=== PATIENT | female | born 1990 | race Caucasian/White ===

== ENCOUNTER 2020-03-07 14:52 | Emergency (ER) | payer SELFPAY ==
[2020-03-07 15:00] VITALS: BP 122/98; PULSE 87; RESP 14; TEMP 36.8; O2SAT 99; BMI 23.5
--- NOTE | 2020-03-07 21:37 | ED.BACK ---
HPI - Back Pain/Injury <ANTOINETTE Almaguer - Last Filed: 03/07/20 21:48> General Chief Complaint: Urogenital-Female Stated Complaint: worsening back pain Time Seen by Provider: 03/07/20 15:55 Source: patient Mode of arrival: Ambulatory Limitations: no limitations History of Present Illness HPI Narrative: This is a 29-year-old female, nonsmoker, who was recently treated with nitrofurantoin b.i.d. for 7 day course for UTI symptoms which she completed 10 days ago presents to ED with right low and thoracic back pain with left neck pain. Patient is concerned for kidney infection since she had recent UTI symptoms such as urinary urgency. Patient has been increasing hydration, taking probiotics and cranberry pills without much improvement after the initial urinary symptoms and she was evaluated at walk-in clinic by telemedicine and treated with antibiotic medications. Patient denies fever, chills, nausea or vomiting currently. Patient reports pain increases with movements and bending and extending her back. Patient reports urinary cloudiness but denies other urinary symptoms such as urgency, frequency, blood, dysuria. Patient denies groin numbness, weakness to her extremities, incontinence for bladder or stools. Patient denies history of back injury or trauma but states has been sitting on a chair prolonged time. Patient denies drug use including IV drugs. Patient denies recent spine manipulations or injections. LMP 2 weeks ago which was normal for her. Related Data Previous Rx's Medication Instructions Recorded cyclobenzaprine 10 mg PO BEDTIME PRN #7 tab 03/07/20 Allergies Allergy/AdvReac Type Severity Reaction Status Date / Time No Known Drug Allergies Allergy Verified 03/07/20 15:00 Review of Systems <ANTOINETTE Almaguer - Last Filed: 03/07/20 21:48> Review of Systems Narrative: General: Denies fever, chills, fatigue, malaise, sweats. HEENT: Denies sinus pain, ear pain, sore throat, difficulty swallowing, dizziness. Respiratory: Denies dyspnea, cough, wheezing, hemoptysis, sputum. Cardiovascular: Denies chest pain, palpitations, orthopnea, edema. Gastrointestinal: Denies nausea, vomiting, abdominal pain, diarrhea, constipation, melena. : See HPI Musculoskeletal: See HPI Skin: Denies rash, skin lesions, or other. Neurologic: Denies weakness, headache, numbness, change in speech, confusion, seizures, incoordination. Psychiatric: No concerning psychosocial issues. 12-point review of systems is negative except for those stated above. Patient History <ANTOINETTE Almaguer - Last Filed: 03/07/20 21:48> Medical History (Updated 03/07/20 @ 21:42 by ANTOINETTE Almaguer) No significant past medical history (Acute) Surgical History (Updated 03/07/20 @ 21:42 by ANTOINETTE Almaguer) No pertinent past surgical history (Acute) Social History (Updated 03/07/20 @ 21:43 by ANTOINETTE Almaguer) Smoking Status: Unknown if ever smoked substance use type: does not use Smoking Status: Unknown if ever smoked alcohol intake frequency: holidays/special occasions only Exam <ANTOINETTE Almaguer - Last Filed: 03/07/20 21:48> Narrative Exam Narrative: GEN: Alert, oriented x 3, well appearing and nourished, and in no acute distress. Head: Normal cephalic, atraumatic. No scalp or temporal tenderness, palpable mass or rash. EYES: Pupils are equal, round, and reactive to light and accommodation. Extraocular muscles are intact bilaterally. There is no subconjunctival hemorrhage, exudate and sclera non-icteric. ENT: Hearing grossly intact. Airway patent. Neck: Trachea in midline. No JVD, non-tender without lymphadenopathy. No masses or thyroid megaly. Supple, non-tender and no meningeal signs. CARDIAC: Normal regular rate and rhythm without murmurs, gallops, or rubs. No chest wall tenderness. No peripheral edema, cyanosis or pallor. Capillary refill is less than 2 seconds. RESPIRATORY: Lungs are clear to auscultate bilaterally. No cough, wheezes, rales, or rhonchi. No stridor, respiratory distress, increase work of breathing, or accessary muscle used. ABD: Abdomen soft, nontender and non-distended. No guarding or rebound tenderness to palpate. Bowel sounds are normal in all 4 quadrants. There is no palpable masses or organomegaly. EXT: Full painless ROM of all extremities with no loss of sensation, strength, effusion or edema. SKIN: Warm, dry, normal color for patient. No erythema, lesions or rash over visible areas. NEUROLOGICAL: Alert and oriented to place, time and person. Sensation and motor function intact bilaterally. No facial droops, dysphasia. PSYCHIATRIC: Good judgement and reason, without hallucinations, abnormal affect or abnormal behaviors during the examination. Patient is not suicidal. Initial Vital Signs Initial Vital Signs: Vital Signs Temperature 98.2 F 03/07/20 15:00 Pulse Rate 87 03/07/20 15:00 Respiratory Rate 14 03/07/20 15:00 Blood Pressure 122/98 H 03/07/20 15:00 Pulse Oximetry 99 03/07/20 15:00 Back/Spine/Pelvis Back: normal to inspection, back tenderness, No CVA tenderness, No ecchymosis, No erythema, No mass and No warmth Cervical Spine: normal cervical lordosis, cervical ROM normal and pain with cervical ROM Thoracic/Lumbar Spine: pain with thoraco-lumbar ROM, No paraspinal tenderness, thoracic spinal tenderness and lumbar spinal tenderness <Favian Melara MD - Last Filed: 03/08/20 08:32> Initial Vital Signs Initial Vital Signs: Vital Signs Temperature 98.2 F 03/07/20 15:00 Pulse Rate 87 03/07/20 15:00 Respiratory Rate 14 03/07/20 15:00 Blood Pressure 122/98 H 03/07/20 15:00 Pulse Oximetry 99 03/07/20 15:00 Scores <ANTOINETTE Almaguer - Last Filed: 03/07/20 21:48> GCS [place] coma scale eye opening: Spontaneous [place] coma scale verbal response: Orientated [place] coma scale motor response: Obey commands [place] coma scale total score: 15 qSOFA Altered Mental Status (GCS <15): No Respiratory rate greater than/equal to 22: No Systolic blood pressure less than or equal to 100: No qSOFA Total: 0 0-1 Not High Risk 1-3 High risk Course <ANTOINETTE Almaguer - Last Filed: 03/07/20 21:48> Vital Signs Vital signs: Vital Signs - 8 hr 03/07/20 15:00 Temperature 98.2 F Pulse Rate 87 Respiratory Rate 14 Blood Pressure 122/98 H Pulse Oximetry 99 <Favian Melara MD - Last Filed: 03/08/20 08:32> Vital Signs Vital signs: Vital Signs - 8 hr 03/07/20 15:00 Temperature 98.2 F Pulse Rate 87 Respiratory Rate 14 Blood Pressure 122/98 H Pulse Oximetry 99 MDM - Back Pain/Injury <Shon CoxANTOINETTE - Last Filed: 03/07/20 21:48> Differential Diagnosis Differential diagnosis: Likely strain of lumbar region, renal colic, pyelonephritis, thoracic back pain and other (Shingles) Medical Records Attestation: I reviewed the patient's medical records. Lab Data Attestation: I reviewed the patient's lab results. Labs: Point of Care Testing Test Results Negative Urine Dip Bedside Urine Glucose Negative Bedside Urine Bilirubin + 1 Bedside Urine Ketone - Negative Urine Specific [place] 1.030 Bedside Urine Occult Blood - Negative Bedside Urine pH 6.0 Bedside Urine Protein +/- 15 Bedside Urine Urobilinogen - Negative Bedside Urine Nitrite - Negative Bedside Urine Leukocytes - Negative Esterase MDM Narrative Medical decision making narrative: This is a 29-year-old female who presents to ED with low thoracic, right lumbar spine discomfort and left neck discomfort. Patient was concerned for kidney infection since she was recently treated for UTI with nitrofurantoin. Patient reports cloudy urine without other urinary symptoms. Patient is afebrile with within normal heart rates and blood pressure. Patient does not appears to be toxic. Reports pain increases with movements. UA test result is not consistent with UTI. Negative urine leukoesterase and nitrites. No occult blood in urine. Urine test was negative. There is no rash noted in affected site. Will treat patient with musculoskeletal pain. Patient was discharged to home with small dose of Flexeril for muscle relaxant and advised to take [id number] Tylenol and or Motrin as needed for discomfort. Return precautions were discussed with patient and patient verbalized understanding and agreement with treatment plan. [facility] phone number provided to arrange primary care physician in [facility]. <Favian Melara MD - Last Filed: 03/08/20 08:32> Lab Data Labs: Point of Care Testing Test Results Negative Urine Dip Bedside Urine Glucose Negative Bedside Urine Bilirubin + 1 Bedside Urine Ketone - Negative Urine Specific [place] 1.030 Bedside Urine Occult Blood - Negative Bedside Urine pH 6.0 Bedside Urine Protein +/- 15 Bedside Urine Urobilinogen - Negative Bedside Urine Nitrite - Negative Bedside Urine Leukocytes - Negative Esterase Discharge Plan Departure Patient Disposition: Home Clinical Impression: Neck pain Back pain Qualifiers: Back pain location: low back pain Chronicity: unspecified Back pain laterality: midline Sciatica presence: without sciatica Qualified Code(s): M54.5 - Low back pain Discharge Date/Time: 03/07/20 16:40 Instructions: DI for Neck Pain, DI for Back Strain or Sprain Activity Restrictions/Additional Instructions: You have been diagnosed with [low thoracic pain and neck pain likely from strain. No Indication for if infection from urine test. Urine test was negative.]. What to do: *Take your medications as directed. Please take Tylenol 650-1000 mg up to 3 to 4 times a day as needed for pain. Ibuprofen 400 mg to 600 mg up to 3 to 4 times a day as needed for pain with food to decrease GI irritation. Please take Flexeril as needed for muscle tightness. This medication can cause drowsiness so please do not drive, drink alcohol, operate heavy equipments. You could use warm pack/cool pack as needed on affected site for pain *Follow up with your primary care provider in 2-3 days, call for an appointment. Let them know you were seen in the ED and that we asked you to be seen in follow up. *Return to ED if you have any new, worsening, or concerning symptoms, such as [chest pain, breathing difficulty, unable to tolerate fluids, rash, weakness to bilateral legs, incontinence, groin numbness or any acute concerns]. Prescriptions: New cyclobenzaprine 10 mg tablet 10 mg PO BEDTIME PRN (Reason: muscle spasm) Qty: 7 RF: 0 Referrals: [facility] [Outside]
== END 2020-03-07 16:40 | disposition home or self-care (01) ==
PROVIDERS: Emergency Provider Nurse Practitioner Family
DX: M54.2 Cervicalgia (principal); M54.5 Low back pain
CPT/HCPCS: 81003; 81025; 99282

== ENCOUNTER 2020-03-19 16:12 | Emergency (ER) | payer SELFPAY ==
[2020-03-19 16:15] VITALS: BP 135/80; PULSE 96; RESP 18; O2SAT 100; BMI 23.5
[2020-03-19 16:37] VITALS: TEMP 36.9
--- NOTE | 2020-03-19 16:54 | PC.NURSE ---
Patient states she has been experiencing lower back pain for weeks, that has recently been accompanied by RUQ pain, cloudy urine, and unusual leg bruising. States she did take cephalexin for what she believed was UTI in the past few weeks with relief for three days and the pain returning. Pain 8/10. Patient states the right leg has had vericose veins that were painful and red recently. States family history of blood clots. Also states she has known circulation issue throughout body and irregular heart rhythm. Vitals within normal limits. Visitor in room.
--- NOTE | 2020-03-19 17:08 | DI.US.S_ITS ---
PROCEDURE: US ABDOMEN LIMITED INDICATIONS: RIGHT UPPER QUADRANT PAIN TECHNIQUE: Real-time focused scanning was performed of the right upper quadrant, with image documentation. COMPARISON: None. FINDINGS: The liver is normal in size with homogeneous echotexture. No discrete hepatic mass lesion identified. The gallbladder is partially distended without gallstones, wall thickening, or pericholecystic fluid. No intra or extrahepatic biliary ductal dilatation. The visualized pancreas appears unremarkable sonographically. IMPRESSION: 1. No evidence of cholelithiasis or cholecystitis. Dictated by: Dov Sidhu M.D. on 03/19/2020 at 18:15 Approved by: Dov Sidhu M.D. on 03/19/2020 at 18:17
--- NOTE | 2020-03-19 17:10 | DI.RAD.S_ITS ---
PROCEDURE: XR CHEST 2V INDICATIONS: short of breath TECHNIQUE: 2 views of the chest were acquired. COMPARISON: None. FINDINGS: Surgical changes and devices: None. Lungs and pleura: Lungs are clear. No pleural effusions or pneumothorax. Mediastinum: Mediastinal contours are normal. Heart size is normal. Bones and chest wall: No suspicious bony abnormalities. Soft tissues appear unremarkable. IMPRESSION: 1. No acute cardiopulmonary disease. Dictated by: Dov Sidhu M.D. on 03/19/2020 at 18:17 Approved by: Dov Sidhu M.D. on 03/19/2020 at 18:17
[2020-03-19 17:18] LABS: Add Manual Diff / Slide Review NO; Basophils Absolute Auto 0 /uL (0-100); Basophils Percent Auto 0.4 % (0-2); Eosinophils Absolute Auto 100 /uL (0-450); Eosinophils Percent Auto 2.2 % (2-4); Hematocrit 39.6 % (36-46); Hemoglobin 13.2 g/dL (12.0-16.0); Lymphocytes Absolute Auto 2400 /uL (1100-4500); Lymphocytes Percent Auto 35.7 % (25-40); Mean Corpuscular HGB Conc 33.3 % (30-36); Mean Corpuscular Hemoglobin 29.6 PG (26-34); Mean Corpuscular Volume 88.8 fL (80-100); Monocytes Absolute Auto 400 /uL (0-900); Monocytes Percent Auto 6.1 % (3-14); Neutrophils Absolute Auto 3800 /uL (1500-7000); Neutrophils Percent Auto 55.6 % (50-75); Platelet Count 242 X10^3/uL (150-400); Red Blood Cell Count 4.46 X10^6/uL (4.0-5.2); Red Cell Distribution Width 12.4 % (11.6-14.8); White Blood Cell Count 6.8 X10^3/uL (4.5-11.0)
[2020-03-19 17:20] VITALS: PULSE 87; RESP 20; O2SAT 100
[2020-03-19 17:25] LABS: Alanine Aminotransferase 33 IU/L (<35); Albumin 4.2 g/dL (3.5-5.0); Albumin Globulin Ratio 1.6 (1.0-2.8); Alkaline Phosphatase 84 U/L (38-126); Aspartate Aminotransferase 31 IU/L (14-36); Bilirubin Total 0.6 mg/dL (0.2-1.3); Blood Urea Nitrogen 13 mg/dL (7-17); Calcium 9.8 mg/dL (8.4-10.2); Carbon Dioxide 28 mmol/L (22-32); Chloride 104 mmol/L (98-107); Creatine Kinase 33 U/L (30-135); Estimated Glomerular Filt Rate > 60.0 mL/min (>60); Globulin 2.7 g/dL (1.7-4.1); Glucose 89 mg/dL (70-100); HEMOLYSIS < 15 (0-50); Lipase 131 U/L (23-300); Potassium 4.1 mmol/L (3.4-5.1); Sodium 137 mmol/L (137-145); Total Protein 6.9 g/dL (6.3-8.2)
[2020-03-19 17:27] LABS: D Dimer < 200 ng/mL (<230)
[2020-03-19 17:30] VITALS: PULSE 86; RESP 20; O2SAT 100
[2020-03-19 17:37] LABS: Troponin I < 0.012 ng/mL (0.01-0.034)
[2020-03-19 18:00] VITALS: PULSE 83; O2SAT 96
--- NOTE | 2020-03-19 18:12 | ED_ITS ---
HPI - Back Pain/Injury General Chief Complaint: Back Pain/Injury Stated Complaint: BACK PAIN, STOMACH PAIN, SOB Time Seen by Provider: 03/19/20 16:40 Source: patient Mode of arrival: Ambulatory Limitations: no limitations History of Present Illness HPI Narrative: Patient is a 29-year-old female who presents with a variety of complaints. She states that she has been having some right upper quadrant pain ongoing for about the last 1 week radiating around to her back. She denies any nausea or vomiting. Food does not make it any better or worse. She also is having some chest pain or shortness of breath with exertion. 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 She has a family history of varicose veins and is worried that she might have a blood clot. She denies any productive cough. He is she had a UTI and likely pyelonephritis which was treated with antibiotics about 3 weeks ago. She feels like that has cleared up the still has some intermittent back pain. Here 03/07/2020 for back and neck pain without injury, any injections into her back pain no IV drug use. Related Data Previous Rx's Medication Instructions Recorded cyclobenzaprine 10 mg PO BEDTIME PRN #7 tab 03/07/20 Allergies Allergy/AdvReac Type Severity Reaction Status Date / Time No Known Drug Allergies Allergy Verified 03/07/20 15:00 Review of Systems Review of Systems ROS Unobtainable: All systems reviewed & are unremarkable except as noted in HPI and below Constitutional Constitutional: Denies chills, Denies fever(s), Denies lethargy and Denies weakness Eyes Eyes: Denies change in vision, Denies eye discharge, Denies irritation and Denies loss of vision Cardiovascular Cardiovascular: Denies chest pain, Denies irregular heart rhythm, Denies lightheadedness, Denies palpitations, Denies dyspnea, Denies dyspnea on exertion and Denies orthopnea Respiratory Respiratory: Denies cough, Denies dyspnea, Denies dyspnea on exertion and Denies wheezing Gastrointestinal Gastrointestinal: Reports as per HPI and Reports abdominal pain Genitourinary Genitourinary: Reports as per HPI Genitourinary: Reports as per HPI Musculoskeletal Musculoskeletal: Denies back pain and Denies myalgias Integumentary/Breasts Skin/Breast: Denies pruritus, Denies erythema, Denies rash and Denies wounds Neurologic Neurologic: Denies loss of vision and Denies weakness Endocrine Endocrine: Denies palpitations Allergic/Immunologic Allergic/Immunologic: Denies wheezing Patient History Medical History No significant past medical history (Acute) Surgical History No pertinent past surgical history (Acute) Social History Smoking Status: Unknown if ever smoked substance use type: does not use Smoking Status: Unknown if ever smoked alcohol intake frequency: holidays/special occasions only Substance Use Type: marijuana Exam Initial Vital Signs Initial Vital Signs: Vital Signs Pulse Rate 96 H 03/19/20 16:15 Respiratory Rate 18 03/19/20 16:15 Blood Pressure 135/80 03/19/20 16:15 Pulse Oximetry 100 03/19/20 16:15 GENERAL: Well-appearing, well-nourished and in no acute distress. HEENT: Head atraumatic,EOMI, pupils reactive, face symmetric, moist mucous membranes CARDIOVASCULAR: Regular rate and rhythm without murmurs, rubs or gallops. RESPIRATORY: Breath sounds equal bilaterally, no wheezes rales or rhonchi. ABDOMEN: Soft, minor right upper quadrant pain no guarding or rebound : No CVA tenderness EXTREMITIES: Normal range of motion, no clubbing or edema. Neurovascularly intact NEUROLOGICAL: Alert and oriented x4.Normal gait and speech. SKIN: Warm, dry, no laceration, no petechiae, no rashes or lesions. Scores PERC Score Age greater than or equal to 50 years: No Heart rate greater than or equal to 100 bpm: No Room Air O2 Sat less than 95%: No Unilateral leg swelling: No Recent trauma or surgery: No Hemoptysis: No Prior PE or DVT: No Hormone Use: No Total PERC Score: 0 Course Orders Ordered: ED Orders 03/19/20 16:45 Complete Blood Count AUTO DIFF Stat Comprehensive Metabolic Panel Stat D Dimer Stat Lipase Stat Troponin & CK Cardiac Panel Stat 03/19/20 17:08 US abdomen limited Stat 03/19/20 17:09 EKG-12 Lead Stat 03/19/20 17:10 XR chest 2V Stat Vital Signs Vital signs: Vital Signs - 8 hr 03/19/20 16:15 03/19/20 16:37 03/19/20 17:20 Temperature 98.5 F Pulse Rate 96 H 87 Respiratory Rate 18 20 Blood Pressure 135/80 Pulse Oximetry 100 100 03/19/20 17:30 03/19/20 18:00 03/19/20 18:21 Temperature Pulse Rate 86 83 84 Respiratory Rate 20 Blood Pressure 130/80 Pulse Oximetry 100 96 97 MDM - Back Pain/Injury Lab Data Attestation: I reviewed the patient's lab results. Result diagrams: 03/19/20 16:45 03/19/20 16:45 Labs: Lab Results 03/19/20 03/19/20 03/19/20 Range/Units 16:45 16:45 16:45 WBC 6.8 (4.5-11.0) X10^3/uL RBC 4.46 (4.0-5.2) X10^6/uL Hgb 13.2 (12.0-16.0) g/dL Hct 39.6 (36-46) % MCV 88.8 (80-100) fL MCH 29.6 (26-34) PG MCHC 33.3 (30-36) % RDW 12.4 (11.6-14.8) % Plt Count 242 (150-400) X10^3/uL Neut % (Auto) 55.6 (50-75) % Lymph % (Auto) 35.7 (25-40) % [place] % (Auto) 6.1 (3-14) % Eos % (Auto) 2.2 (2-4) % Baso % (Auto) 0.4 (0-2) % Neut # (Auto) 3800 (7641-8292) /uL Lymph # (Auto) 2400 (3313-2793) /uL [place] # (Auto) 400 (0-900) /uL Eos # (Auto) 100 (0-450) /uL Baso # (Auto) 0 (0-100) /uL D-Dimer < 200 (<230) ng/mL Sodium 137 (137-145) mmol/L Potassium 4.1 (3.4-5.1) mmol/L Chloride 104 (98-107) mmol/L Carbon Dioxide 28 (22-32) mmol/L BUN 13 (7-17) mg/dL Creatinine 0.62 (0.52-1.04) mg/dL Estimated GFR > 60.0 (>60) mL/min BUN/Creatinine Ratio 21.0 (6-22) Glucose 89 (70-100) mg/dL Calcium 9.8 (8.4-10.2) mg/dL Total Bilirubin 0.6 (0.2-1.3) mg/dL AST 31 (14-36) IU/L ALT 33 (<35) IU/L Alkaline Phosphatase 84 (38-126) U/L Total Creatine Kinase 33 (30-135) U/L CK-MB (CK-2) TNP CK-MB (CK-2) Rel Index TNP Troponin I < 0.012 (0.01-0.034) ng/mL Total Protein 6.9 (6.3-8.2) g/dL Albumin 4.2 (3.5-5.0) g/dL Globulin 2.7 (1.7-4.1) g/dL Albumin/Globulin Ratio 1.6 (1.0-2.8) Lipase 131 (23-300) U/L Point of Care Testing Test Results Negative Urine Dip Bedside Urine Glucose Negative Bedside Urine Bilirubin - Negative Bedside Urine Ketone - Negative Urine Specific [place] 1.020 Bedside Urine Occult Blood - Negative Bedside Urine pH 6.0 Bedside Urine Protein - Negative Bedside Urine Urobilinogen - Negative Bedside Urine Nitrite - Negative Bedside Urine Leukocytes - Negative Esterase Imaging Data US - abdomen: Radiologist's Impression: PROCEDURE: US ABDOMEN LIMITED INDICATIONS: RIGHT UPPER QUADRANT PAIN TECHNIQUE: Real-time focused scanning was performed of the right upper quadrant, with image documentation. COMPARISON: None. FINDINGS: The liver is normal in size with homogeneous echotexture. No discrete hepatic mass lesion identified. The gallbladder is partially distended without gallstones, wall thickening, or pericholecystic fluid. No intra or extrahepatic biliary ductal dilatation. The visualized pancreas appears unremarkable sonographically. IMPRESSION: 1. No evidence of cholelithiasis or cholecystitis. Dictated by: Dov Sidhu M.D. on 03/19/2020 at 18:15 Approved by: Dov Sidhu M.D. on 03/19/2020 at 18:17 Chest x-ray: Radiologist's Impression: PROCEDURE: XR CHEST 2V INDICATIONS: short of breath TECHNIQUE: 2 views of the chest were acquired. COMPARISON: None. FINDINGS: Surgical changes and devices: None. Lungs and pleura: Lungs are clear. No pleural effusions or pneumothorax. Mediastinum: Mediastinal contours are normal. Heart size is normal. Bones and chest wall: No suspicious bony abnormalities. Soft tissues appear unremarkable. IMPRESSION: 1. No acute cardiopulmonary disease. Dictated by: Dov Sidhu M.D. on 03/19/2020 at 18:17 ECG Data Attestation: I personally reviewed and interpreted this ECG as follows: Prior ECG tracings: not available for review Interpretation: Normal sinus rhythm rate 82 p.r. interval 146 QRS [address] changes no T-wave inversions MDM Narrative Medical decision making narrative: Patient's blood work ultrasound chest x-ray EKG are overall reassuring no sign of infection at this time. No sign of cholecystitis she has no elevated bilirubin or lipase. At this time recommend follow-up as outpatient. D-dimer is negative with a low PERC score unlikely to be PE. Unclear what is causing all of her problems, but overall appears well and healthy recommend outpatient follow-up for any further test Discharge Plan Departure Patient Disposition: Home Clinical Impression: Worried well Discharge Date/Time: 03/19/20 18:57 Instructions: DI for General Gallbladder Conditions Activity Restrictions/Additional Instructions: *You have been diagnosed with no issue found *What to do: Ultrasound blood work is overall reassuring recommend that he follow up with her primary for further evaluation. No need for antibiotic. *Continue to take medications as directed *Follow up with your primary care provider in 2-3 days *Return to ER if you should have increasing shortness of breath, worsening abdominal pain, fever or any new, worsening or concerning symptoms Prescriptions: No Action cyclobenzaprine 10 mg tablet 10 mg PO BEDTIME PRN (Reason: muscle spasm) Qty: 7 RF: 0
[2020-03-19 18:21] VITALS: BP 130/80; PULSE 84; O2SAT 97
== END 2020-03-19 18:57 | disposition home or self-care (01) ==
PROVIDERS: Emergency Provider Emergency Medicine
DX: R10.11 Right upper quadrant pain (principal); R07.9 Chest pain, unspecified; R06.02 Shortness of breath
CPT/HCPCS: 36415; 71046; 76705; 80053; 81003; 81025; 82550; 83690; 84484; 85025; 85379; 93005; 99284

== ENCOUNTER → 2023-05-05 18:25 | Outpatient (CLI) | payer OTHER, MEDICAID, SELFPAY ==
[2023-05-05 19:52] LABS: COVID-19 CEPHEID 4-PLEX PCR Negative (Negative); Influenza A - CEPHEID Flu A NEGATIVE (NEGATIVE); Influenza B - CEPHEID Flu B NEGATIVE (NEGATIVE); Respiratory Syncytial Virus Negative (Negative)
== END ==
PROVIDERS: Visit Provider Nurse Practitioner Family
DX: J06.9 Acute upper respiratory infection, unspecified (principal)
CPT/HCPCS: 0241U; C9803